=== PATIENT | female | born 2000 | race Caucasian/White ===

== ENCOUNTER → 2022-07-05 | Outpatient (REF) | LOC: M LAB 15:15 | PROVIDERS: ATTEND Nurse Practitioner Adult Health | DX: Z00.00 Encounter for general adult medical examination without abnormal findings (principal) ==

== ENCOUNTER 2022-11-25 15:56 | Emergency (ER) | payer OTHER, BC ==
[~2022-11-25] VITALS: Ht 172.7 cm; Wt 65.9 kg
[2022-11-25] MEDS ORDERED: ALBU6.7H6 INH (16:04)
[2022-11-25] MEDS ORDERED: CETI10CA2 PO (16:04)
[2022-11-25 20:39] LABS: BASO % 0.7 % (0.0-1.0); EOS % 0.7 % (0.0-3.0); HEMATOCRIT 42.7 % (36.0-47.0); HEMOGLOBIN 12.9 g/dl (12.0-15.5); LYMPH # 1.5 10^3/uL (1.5-5.0); LYMPH % 35.7 % (24.0-44.0); MEAN CORPUSCULAR HEMOGLOBIN 23.8 pg (27.0-33.0); MEAN CORPUSCULAR HGB CONC 30.2 g/dl (32.0-36.5); MEAN CORPUSCULAR VOLUME 78.8 fl (80.0-96.0); MONO # 0.7 10^3/uL (0.0-0.8); MONO % 16.1 % (2.0-8.0); NEUTROPHILS # 1.9 10^3/uL (1.5-8.5); NEUTROPHILS % 46.6 % (36.0-66.0); PLATELET COUNT, AUTOMATED 258 10^3/uL (150-450); RED BLOOD COUNT 5.42 10^6/uL (4.00-5.40); WHITE BLOOD COUNT 4.2 10^3/uL (4.0-10.0)
[2022-11-25 20:56] LABS: LIPASE 38 U/L (12-53)
[2022-11-25 20:58] LABS: ALBUMIN 4.3 G/DL (3.2-5.2); ALKALINE PHOSPHATASE 65 U/L (46-116); ALT/SGPT 21 U/L (7.0-40); AST/SGOT 36 U/L (<34); BILIRUBIN,DIRECT 0.2 MG/DL (<0.4); BILIRUBIN,TOTAL 0.5 MG/DL (0.3-1.2); BLOOD UREA NITROGEN 14 MG/DL (9-23); CARBON DIOXIDE LEVEL 26 MMOL/L (20-31); CHLORIDE LEVEL 103 MMOL/L (98-107); CREATININE FOR GFR 0.58 MG/DL (0.55-1.30); GLOMERULAR FILTRATION RATE > 60.0 (>60); GLUCOSE, FASTING 86 MG/DL (60-100); POTASSIUM SERUM 3.6 MMOL/L (3.5-5.1); SODIUM LEVEL 139 MMOL/L (136-145); TOTAL PROTEIN 8.1 G/DL (5.7-8.2)
[2022-11-25] MEDS ORDERED: ONDANSETRON 4MG 2ML VIAL IV ONE (21:00)
[2022-11-25] MEDS ORDERED: NS 1,000 ML IV ONE (21:00)
[2022-11-25 21:01] LABS: HCG, SERUM QUALITATIVE NEGATIVE (NEGATIVE)
[2022-11-25 23:40] VITALS: BP 104/59
== END 2022-11-26 00:22 | disposition home or self-care (01) ==
LOC: M ED 15:56
DX: R11.2 Nausea with vomiting, unspecified (principal); R19.7 Diarrhea, unspecified; S29.011A Strain of muscle and tendon of front wall of thorax, initial encounter; J45.909 Unspecified asthma, uncomplicated; Z79.899 Other long term (current) drug therapy
CPT/HCPCS: 71046; 80048; 80076; 83690; 84703; 85025; 87486; 87581; 87633; 87798; 96374; 99283; J2405

== ENCOUNTER 2023-02-14 17:02 | Emergency (ER) | payer OTHER ==
[~2023-02-14] VITALS: Ht 175.3 cm; Wt 66.7 kg
[~2023-02-14 17:02] MED LIST: ALBU6.7H6 INH; CETI10CA2 PO
[2023-02-14 18:00] VITALS: BP 126/66
== END 2023-02-14 18:11 | disposition home or self-care (01) ==
LOC: M ED 17:02
DX: Z32.02 Encounter for pregnancy test, result negative (principal); J45.909 Unspecified asthma, uncomplicated

== ENCOUNTER 2023-04-12 13:28 | Emergency (ER) | payer OTHER ==
[~2023-04-12] VITALS: Ht 175.3 cm; Wt 67.3 kg
[~2023-04-12 13:28] MED LIST changes: +RALTEGRAVIR 400 MG TAB (ISENTRESS) PO SCH; +TRUVADA 200MG/300MG TABLET PO SCH
[2023-04-12 13:29] VITALS: BP 114/70; TEMP 99; O2SAT 100
[2023-04-12] MEDS ORDERED: FERR150C PO (13:48)
[2023-04-12 14:16] LABS: BASO # 0.1 10^3/uL (0.0-0.2); BASO % 0.6 % (0.0-1.0); EOS % 0.4 % (0.0-3.0); HEMATOCRIT 44.3 % (36.0-47.0); HEMOGLOBIN 14.4 g/dl (12.0-15.5); LYMPH # 2.1 10^3/uL (1.5-5.0); LYMPH % 25.3 % (24.0-44.0); MEAN CORPUSCULAR HGB CONC 32.5 g/dl (32.0-36.5); MONO # 0.7 10^3/uL (0.0-0.8); MONO % 8.4 % (2.0-8.0); NEUTROPHILS # 5.4 10^3/uL (1.5-8.5); NEUTROPHILS % 65.1 % (36.0-66.0); PLATELET COUNT, AUTOMATED 276 10^3/uL (150-450); RED BLOOD COUNT 5.54 10^6/uL (4.00-5.40); WHITE BLOOD COUNT 8.2 10^3/uL (4.0-10.0)
[2023-04-12 14:46] LABS: ALBUMIN 4.7 G/DL (3.2-5.2); ALKALINE PHOSPHATASE 65 U/L (46-116); ALT/SGPT 13 U/L (7.0-40); AST/SGOT 11 U/L (<34); BILIRUBIN,TOTAL 0.9 MG/DL (0.3-1.2); BLOOD UREA NITROGEN 13 MG/DL (9-23); CALCIUM LEVEL 9.8 MG/DL (8.5-10.1); CARBON DIOXIDE LEVEL 25 MMOL/L (20-31); CHLORIDE LEVEL 108 MMOL/L (98-107); CREATININE FOR GFR 0.58 MG/DL (0.55-1.30); GLOMERULAR FILTRATION RATE > 60.0 (>60); GLUCOSE, FASTING 81 MG/DL (60-100); POTASSIUM SERUM 4.1 MMOL/L (3.5-5.1); SODIUM LEVEL 143 MMOL/L (136-145); TOTAL PROTEIN 8.4 G/DL (5.7-8.2)
[2023-04-12 14:48] LABS: HEPATITIS B SURFACE ANTIBODY NEGATIVE (POSITIVE)
[2023-04-12 15:00] LABS: HEPATITIS B SURFACE ANTIGEN NEGATIVE (NEGATIVE)
[2023-04-12 15:13] LABS: HIV 1&2 SCREEN NEGATIVE (NEGATIVE)
[2023-04-12 15:21] LABS: HEPATITIS C VIRUS ABY INDEX 0.07 INDEX (<0.8)
[2023-04-12 15:28] LABS: HCG, SERUM QUALITATIVE NEGATIVE (NEGATIVE)
[2023-04-12 15:44] LABS: GC DNA AMPLIFICATION NEGATIVE (NEGATIVE)
[2023-04-12] MEDS ORDERED: EXPOSURE KIT-ADULT 7 DAY SUPPLY PO ONE (17:00)
[2023-04-12] MEDS ORDERED: EMTR1TAB16 PO (17:02)
[2023-04-12] MEDS ORDERED: RALT40TA PO (17:02)
[2023-04-12] MEDS ORDERED: ONDA4TAB6 PO (17:02)
[2023-04-12] MEDS ORDERED: DOXY100C82 PO (17:02)
[2023-04-12] MEDS ORDERED: RALTEGRAVIR 400 MG TAB (ISENTRESS) PO ONE (18:00)
[2023-04-12] MEDS ORDERED: TRUVADA 200MG/300MG TABLET PO ONE (18:00)
== END 2023-04-12 17:41 | disposition home or self-care (01) ==
LOC: M ED 13:28
DX: A74.9 Chlamydial infection, unspecified (principal); Z79.899 Other long term (current) drug therapy; Z79.51 Long term (current) use of inhaled steroids

== ENCOUNTER 2025-07-10 22:54 | Emergency (ER) | payer OTHER ==
[~2025-07-10] VITALS: Ht 172.7 cm; Wt 62.7 kg
[~2025-07-10 22:54] MED LIST changes: +COLA100C5 PO; +DOXY-442 PO; +EMTR1TAB16 PO; +FERR150C PO; +ONDA-282 PO; +RALT40TA PO; -RALTEGRAVIR 400 MG TAB (ISENTRESS) PO SCH; -TRUVADA 200MG/300MG TABLET PO SCH; +VENTAER INH
[2025-07-11] MEDS ORDERED: CYCL5TAB4 PO (04:11)
[2025-07-11] MEDS ORDERED: MEDR4PAK PO (04:11)
[2025-07-11 04:27] VITALS: BP 120/70; TEMP 98.1; O2SAT 98
== END 2025-07-11 04:29 | disposition home or self-care (01) ==
LOC: M ED 22:54
DX: S39.012A Strain of muscle, fascia and tendon of lower back, initial encounter (principal); Y92.9 Unspecified place or not applicable; Y93.9 Activity, unspecified; Y99.9 Unspecified external cause status; J45.909 Unspecified asthma, uncomplicated; Z79.51 Long term (current) use of inhaled steroids; Z79.899 Other long term (current) drug therapy
CPT/HCPCS: 72131; 96372; 99283; J2919; J3360